=== PATIENT | male | born 1970 | race Asian ===

== ENCOUNTER 2017-02-22 11:06 | Emergency (ER) | payer SELFPAY ==
[~2017-02-22] VITALS: Ht 165.1 cm; Wt 60.0 kg
[2017-02-22 11:17] VITALS: BP 136/91
[2017-02-22 12:10] LABS: HEMOGLOBIN. 13.5 g/dL (14.0-18.0); MEAN CORPUSCULAR HEMOGLOBIN 31.7 pg (28.0-32.0); MEAN CORPUSCULAR VOLUME 94.3 fL (80.0-94.0); MEAN PLATELET VOLUME 7.6 fl (7.4-10.4); PLATELET 141 x1000/uL (130-400); RED BLOOD CELL COUNT 4.25 mill/uL (4.7-6.1); RED CELL DISTRIBUTION WIDTH 14.2 % (11.6-14.6)
[2017-02-22 12:18] LABS: PROTHROMBIN TIME 10.9 sec (9.4-11.6)
[2017-02-22 12:19] LABS: CARBON DIOXIDE 30 mEq/L (21-32); CHLORIDE 110 mEq/L (98-107)
[2017-02-22 12:39] LABS: ETHANOL BLOOD 388 mg/dL
[2017-02-22 12:53] LABS: NUCLEATED RED BLOOD CELLS 1 /100 WBC; PLATELET ESTIMATE NORMAL
== END 2017-02-22 17:05 | disposition left against medical advice (07) ==
LOC: ER 16:03
DX: T51.0X1A Toxic effect of ethanol, accidental (unintentional), initial encounter (principal); K92.2 Gastrointestinal hemorrhage, unspecified; Y92.488 Other paved roadways as the place of occurrence of the external cause
CPT/HCPCS: 36415; 80053; 83690; 85025; 85610; 86850; 86900; 86901; 99284; G0482